=== PATIENT | male | born 1960 | race Caucasian/White ===

== ENCOUNTER 2018-12-15 13:21 | Emergency (ER) | payer OTHER ==
[~2018-12-15] VITALS: Ht 177.8 cm; Wt 173.7 kg
[2018-12-15] MEDS ORDERED: METFORMIN500 MG PO (14:25)
[2018-12-15] MEDS ORDERED: SIMVASTATIN10 MG PO (14:25)
[2018-12-15 14:50] VITALS: BP 170/82
[2018-12-15] MEDS ORDERED: LISINOPRIL5 MG PO (15:04)
== END 2018-12-15 14:50 | DRG 563 ==
LOC: ED 13:21
DX: S62.633B Displaced fracture of distal phalanx of left middle finger, initial encounter for open fracture (principal); S61.311A Laceration without foreign body of left index finger with damage to nail, initial encounter; E11.9 Type 2 diabetes mellitus without complications; I10 Essential (primary) hypertension; W31.2XXA Contact with powered woodworking and forming machines, initial encounter; Y92.89 Other specified places as the place of occurrence of the external cause; Y99.0 Civilian activity done for income or pay